=== PATIENT | female | born 1970 ===

== ENCOUNTER 2021-07-01 15:27 | Emergency (ER) | payer MEDICAID ==
[2021-07-01] MEDS ORDERED: HALOPERIDOL LACTATE 5 MG/1 ML INJ IV ONE (17:40)
--- NOTE | 2021-07-01 17:41 | Emergency Department Report ---
ED Altered Mental Status HPI - General Chief Complaint: Altered Mental Status Stated Complaint: KNEE PAIN Time Seen by Provider: 07/01/21 16:21 Source: EMS Mode of arrival: Stretcher Limitations: Altered Mental Status - History of Present Illness Initial Comments: Patient presents with altered mental status. History is obtained from family as the patient is not cogent. They noted that she has been agitated. She has been pulling at things. She has been telling people she is . They picked her up from daycare because she could not be controlled. They had checked her out of her longterm at the end of May. This is the first time that they have seen her like this since leaving the longterm. There has been no change in medication. There has been no fever. There is no cough or congestion. She has had an episode like this several years ago and this was related to a urinary tract infection. The family believes that she may have another urinary tract infection. The patient really cannot complain of symptoms. She just keeps telling people that she is . When asked questions directly, she does not provide consistent answers. - Related Data Previous Rx's Medication Instructions Recorded Last Taken Type cephALEXin [Keflex] 500 mg PO Q8HR #20 cap 07/01/21 Unknown Rx haloperidoL [Haldol] 2 mg PO TID #10 tab 07/01/21 Unknown Rx Allergies Allergy/AdvReac Type Severity Reaction Status Date / Time No Known Allergies Allergy Unverified 07/01/21 18:21 ED Review of Systems ROS: Stated complaint: KNEE PAIN Other details as noted in HPI ED Past Medical Hx - Past Medical History Previous Medical History?: Yes Additional medical history: History of dementia per patient's daughter - Surgical History Past Surgical History?: No - Medications Home Medications: Home Medications Medication Instructions Recorded Confirmed Last Taken Type cephALEXin [Keflex] 500 mg PO Q8HR #20 cap 07/01/21 Unknown Rx haloperidoL [Haldol] 2 mg PO TID #10 tab 07/01/21 Unknown Rx ED Physical Exam - General Limitations: Altered Mental Status ED Course - Reevaluation(s) Reevaluation #1: 07/01/21 17:41 IV labs ordered. Orders reviewed. Haldol was ordered for sedation. Reevaluation #2: 07/01/21 20:42 UA has now resulted. Antibiotics were ordered and the patient was discharged. - Lab Data Result diagrams: 07/01/21 17:44 07/01/21 17:44 Lab Results 07/01/21 07/01/21 07/01/21 Range/Units 17:44 17:44 18:55 WBC 10.7 (4.5-11.0) K/mm3 RBC 3.76 (3.65-5.03) M/mm3 Hgb 11.4 (10.1-14.3) gm/dl Hct 34.0 (30.3-42.9) % MCV 90 (79-97) fl MCH 30 (28-32) pg MCHC 34 (30-34) % RDW 13.7 (13.2-15.2) % Plt Count 362 (140-440) K/mm3 Sodium 145 (137-145) mmol/L Potassium 3.5 L (3.6-5.0) mmol/L Chloride 109.7 H (98-107) mmol/L Carbon Dioxide 22 (22-30) mmol/L Anion Gap 17 mmol/L BUN 7 (7-17) mg/dL Creatinine 0.5 L (0.6-1.2) mg/dL Estimated GFR > 60 ml/min BUN/Creatinine Ratio 14 % Glucose 91 (65-100) mg/dL Calcium 9.2 (8.4-10.2) mg/dL Urine Color [place] (Yellow) Urine Turbidity Cloudy (Clear) Urine pH 6.0 (5.0-7.0) Ur Specific [place] 1.027 (1.003-1.030) Urine Protein 100 mg/dl (Negative) mg/dL Urine Glucose (UA) Neg (Negative) mg/dL Urine Ketones Neg (Negative) mg/dL Urine Blood Neg (Negative) Urine Nitrite Neg (Negative) Urine Bilirubin Neg (Negative) Urine Urobilinogen 4.0 (<2.0) mg/dL Ur Leukocyte Esterase Lg (Negative) Urine WBC (Auto) 128.0 H (0.0-6.0) /HPF Urine RBC (Auto) 17.0 (0.0-6.0) /HPF U Epithel Cells (Auto) 13.0 (0-13.0) /HPF Urine Bacteria (Auto) 3+ (Negative) /HPF Urine Mucus 1+ /HPF Urine Yeast (Budding) 2+ /HPF - Medical Decision Making Patient presents with restlessness and agitation. This is similar to a prior presentation with urinary tract infection. Patient does have evidence of a urinary tract infection here. She does not have any vital sign instability suggestive of severe sepsis or septic shock. She does not have profound le ukocytosis. She does not have any significant fever. She does not appear to have meningitis. Clinically, there is no dyspnea or cough suggestive of pneumonia. Family is very comfortable taking her home. They are comfortable managing this as they managed it previously. She was started empirically on cephalosporins. They can follow-up with her primary care physician for ongoing management. Critical Care Time: No Critical care attestation.: If time is entered above; I have spent that time in minutes in the direct care of this critically ill patient, excluding procedure time. ED Disposition Clinical Impression: Cystitis, Agitation Disposition: 01 HOME / SELF CARE / HOMELESS Is pt being admited?: No Condition: Stable Additional Instructions: Drink plenty water. Return for problems. Follow-up with your regular doctor for recheck. Take all of the antibiotics. Prescriptions: haloperidoL [Haldol] 2 mg PO TID #10 tab cephALEXin [Keflex] 500 mg PO Q8HR #20 cap Referrals: PRIMARY CAREMD [Referring] - 3-5 Days POLINA MORAN MD [Staff Physician] - 3-5 Days
[2021-07-01 18:03] LABS: Hemoglobin 11.4 gm/dl (10.1-14.3); Mean Corpuscular HGB Conc 34 % (30-34); Mean Corpuscular Volume 90 fl (79-97); Platelet Count 362 K/mm3 (140-440); Red Blood Count 3.76 M/mm3 (3.65-5.03); Red Cell Distribution Width 13.7 % (13.2-15.2)
[2021-07-01 18:18] LABS: Blood Urea Nitrogen 7 mg/dL (7-17); Calcium 9.2 mg/dL (8.4-10.2); Hemolysis Index 4
[2021-07-01 18:21] LABS: BUN/Creatinine Ratio 14
[2021-07-01 20:25] LABS: Bacteria,Urine 3+ /HPF (Negative); Bilirubin,Urine NEG (Negative); Blood,Urine NEG (Negative); Color,Urine Amber (Yellow); Mucus,Urine 1+ /HPF
[2021-07-01] MEDS ORDERED: cefTRIAXone/NS 1 GM/50 ML 1 GM/50 ML BAG IV ONE (20:39)
[2021-07-01] MEDS ORDERED: OLANzapine ZYDIS 5 MG TAB PO ONE (20:42)
[2021-07-01 22:38] VITALS: BP 112/88
== END 2021-07-01 22:39 | disposition home or self-care (01) ==
LOC: ED 15:27
DX: N30.90 Cystitis, unspecified without hematuria (principal); R45.1 Restlessness and agitation; R41.82 Altered mental status, unspecified; F03.90 Unspecified dementia, unspecified severity, without behavioral disturbance, psychotic disturbance, mood disturbance, and anxiety
CPT/HCPCS: 36415; 80048; 81001; 85027; 96365; 99284; J0696